=== PATIENT | female | born 1955 | race Caucasian/White ===

== ENCOUNTER 2021-04-28 22:07 | Inpatient (IN) ==
[2021-04-28] MEDS ORDERED: Magnesium Sulfate 2 gm BAG 2 GM/50 ML BAG IVPB ONE (22:42)
[2021-04-28] MEDS ORDERED: Albuterol HFA INHALER 8 gm MDI INH ONE (22:42)
[2021-04-28] MEDS ORDERED: methylPREDNISolone 125 mg 2 ML VIAL IV ONE (22:43)
[2021-04-29 00:18] LABS: Venous Bicarbonate HCO3 26.1 mmol/L (24-28)
[2021-04-29 00:20] LABS: Hematocrit 27 % (35-47); Hemoglobin 8.8 g/dL (12.0-16.0); Mean Corpuscular HGB Conc 33 g/dL (31-36); Mean Corpuscular Hemoglobin 23 pg (27-31); Mean Corpuscular Volume 69 fL (80-97); Mean Platelet Volume 7.2 fL (7.4-10.4); Platelet Count 451 10^3/uL (150-450); Red Blood Count 3.87 10^6 /uL (3.70-4.87); Red Cell Distribution Width 17 % (10-15); White Blood Count 6.5 10^3/uL (3.5-10.8)
[2021-04-29 00:37] LABS: ALT 8 U/L (7-52); AST 15 U/L (13-39); Albumin 3.8 g/dL (3.2-5.2); Albumin/Globulin Ratio 1.2 (1-3); Alkaline Phosphatase 86 U/L (35-149); Blood Urea Nitrogen 7 mg/dL (6-24); C Reactive Protein 15.22 mg/L (<8.01); CO2 Carbon Dioxide 25 mmol/L (22-32); Calcium 8.9 mg/dL (8.6-10.3); Chloride 82 mmol/L (101-111); Globulin 3.2 g/dL (2-4); Glucose 96 mg/dL (70-100); Potassium 3.6 mmol/L (3.5-5.0); eGFR CKD-EPI 101.7 (>60)
[2021-04-29 00:47] LABS: Anion Gap 9 mmol/L (2-11); Sodium 116 mmol/L (135-145)
[2021-04-29 00:54] LABS: ABS Basophils 0.1 10^3/ul (0-0.2); ABS Eosinophils 0.2 10^3/ul (0-0.6); ABS Lymphocytes 1.2 10^3/ul (1.0-4.8); ABS Monocytes 0.5 10^3/ul (0-0.8); ABS Neutrophils 4.5 10^3/ul (1.5-7.7); Eosinophil % 2.8 %; Lymphocyte % 18.3 %
[2021-04-29 01:59] LABS: Total Iron Binding Capacity 462 mcg/dL (250-450); Transferrin 330 mg/dL (203-362)
[2021-04-29 01:59] LABS: Urine Appearance Cloudy; Urine Bilirubin Negative (Negative); Urine Blood 1+ (Negative); Urine Color Yellow; Urine Glucose Negative (Negative); Urine Ketones Negative (Negative); Urine Nitrite Positive (Negative); Urine Protein Negative (Negative); Urine Specific Gravity 1.004 (1.002-1.030); Urine Urobilinogen Negative (Negative)
[2021-04-29 02:00] LABS: Urine Sodium Concentration < 18 mmol/L
[2021-04-29 02:03] LABS: Urine Amorphous Crystals Present (Absent); Urine Bacteria 2+ (Absent); Urine Red Blood Cell 3+(>10/hpf) (Absent); Urine Squamous Epithelial Cell Present (Absent); Urine White Blood Cell 3+(>20/hpf) (Absent)
[2021-04-29 02:08] LABS: Urine Creatinine Concentration 28.91 mg/dL
[2021-04-29 02:14] LABS: TSH Ultra Thyroid Stim Horm 1.64 mcIU/mL (0.34-5.60)
[2021-04-29 02:14] LABS: Urine Osmo 130 mOsm/kg (150-1150)
[2021-04-29 02:15] LABS: % Iron Saturation 4 % (15-55); Iron < 20 ug/dL (50-212); Unsaturated Iron Binding 442 ug/dL
[2021-04-29 02:18] LABS: Free T4 1.15 ng/dL (0.61-1.12)
[2021-04-29 02:21] LABS: Ferritin 5.6 ng/mL (11-307)
[2021-04-29] MEDS ORDERED: NS 0.9% 1000 ml BAG 1,000 ML IV ONE (02:26)
[2021-04-29 02:53] LABS: Osmolality Serum 247 mOsm/kg (275-295)
[2021-04-29 05:50] LABS: Urine Osmo < 100 mOsm/kg (150-1150)
[2021-04-29 06:04] LABS: Venous Bicarbonate HCO3 25.3 mmol/L (24-28)
[2021-04-29 06:14] LABS: Hematocrit 28 % (35-47)
[2021-04-29] MEDS ORDERED: Ondansetron 4 mg VIAL 2 MG/ML 2 ml VIAL IV PRN (06:22)
[2021-04-29 06:28] LABS: Potassium 3.9 mmol/L (3.5-5.0); eGFR CKD-EPI 103.5 (>60)
[2021-04-29] MEDS ORDERED: NS 0.9% 1000 ml BAG 1,000 ML IV SCH ×2 (07:00→07:02)
[2021-04-29] MEDS: cefTRIAXone 1 gm/50 mL NS BAG 1 GM/50 ML BAG IVPB SCH (08:19)
[2021-04-29 08:26] LABS: Calcium 8.8 mg/dL (8.6-10.3); eGFR CKD-EPI 103.5 (>60)
[2021-04-29] MEDS: Mometasone/Formoter 200/5 MDI INH SCH ×2 (11:27→19:21)
[2021-04-29] MEDS: Albuterol HFA INHALER 8 gm MDI INH PRN ×2 (11:29→19:24)
[2021-04-29 13:14] LABS: Potassium 3.7 mmol/L (3.5-5.0); eGFR CKD-EPI 103.5 (>60)
[2021-04-29] MEDS: Heparin 5000 UNITS/ML 1 mL VIAL SUBCUT SCH ×2 (14:40→20:55)
[2021-04-29] MEDS ORDERED: Senna TAB 8.6 mg TAB PO PRN (15:46)
[2021-04-29 16:59] LABS: Calcium 8.9 mg/dL (8.6-10.3); Potassium 3.9 mmol/L (3.5-5.0); eGFR CKD-EPI 96.6 (>60)
[2021-04-29] MEDS: Polyethylene Glycol 3350 17 GM PACKET PO SCH (17:04)
[2021-04-29 20:48] LABS: Calcium 8.5 mg/dL (8.6-10.3); Potassium 3.7 mmol/L (3.5-5.0); eGFR CKD-EPI 97.6 (>60)
[2021-04-29] MEDS: NS 0.9% 1000 ml BAG 1,000 ML IV SCH (20:51)
[2021-04-30 00:40] LABS: Calcium 8.3 mg/dL (8.6-10.3); Potassium 3.6 mmol/L (3.5-5.0)
[2021-04-30 04:26] LABS: ABS Basophils 0.1 10^3/ul (0-0.2); ABS Lymphocytes 0.4 10^3/ul (1.0-4.8); ABS Monocytes 0.7 10^3/ul (0-0.8); ABS Neutrophils 7.7 10^3/ul (1.5-7.7); Eosinophil % 0.3 %; Hematocrit 24 % (35-47); Hemoglobin 7.6 g/dL (12.0-16.0); Lymphocyte % 4.3 %; Mean Corpuscular HGB Conc 32 g/dL (31-36); Mean Corpuscular Hemoglobin 23 pg (27-31); Mean Corpuscular Volume 70 fL (80-97); Mean Platelet Volume 7.2 fL (7.4-10.4); Platelet Count 422 10^3/uL (150-450); Red Blood Count 3.37 10^6 /uL (3.70-4.87); Red Cell Distribution Width 17 % (10-15); White Blood Count 8.9 10^3/uL (3.5-10.8)
[2021-04-30 04:40] LABS: Calcium 8.4 mg/dL (8.6-10.3); Potassium 3.7 mmol/L (3.5-5.0); eGFR CKD-EPI 102.6 (>60)
[2021-04-30] MEDS: NS 0.9% 1000 ml BAG 1,000 ML IV SCH (05:02)
[2021-04-30] MEDS: Heparin 5000 UNITS/ML 1 mL VIAL SUBCUT SCH ×3 (05:04→21:19)
[2021-04-30] MEDS: Albuterol HFA INHALER 8 gm MDI INH PRN ×2 (07:15→18:51)
[2021-04-30] MEDS: Mometasone/Formoter 200/5 MDI INH SCH ×2 (07:17→18:51)
[2021-04-30 08:22] LABS: Calcium 8.6 mg/dL (8.6-10.3); Potassium 3.6 mmol/L (3.5-5.0)
[2021-04-30] MEDS: Polyethylene Glycol 3350 17 GM PACKET PO SCH (08:56)
[2021-04-30] MEDS: cefTRIAXone 1 gm/50 mL NS BAG 1 GM/50 ML BAG IVPB SCH (08:56)
[2021-04-30 12:45] LABS: Calcium 8.7 mg/dL (8.6-10.3); Potassium 3.6 mmol/L (3.5-5.0); eGFR CKD-EPI 104.5 (>60)
[2021-04-30] MEDS: Iron Sucrose 200 MG in NS 0.9% 100 ml BAG 100 ML IVPB SCH (18:41)
[2021-04-30] MEDS: Albuterol 2.5mg/3 ml (0.083%) NEB.SOLN INH PRN (20:07)
[2021-05-01 06:00] LABS: ABS Lymphocytes 1.1 10^3/ul (1.0-4.8); ABS Monocytes 0.8 10^3/ul (0-0.8); ABS Neutrophils 6.5 10^3/ul (1.5-7.7); Eosinophil % 0.2 %; Hematocrit 25 % (35-47); Hemoglobin 7.9 g/dL (12.0-16.0); Lymphocyte % 13.1 %; Mean Corpuscular HGB Conc 32 g/dL (31-36); Mean Corpuscular Hemoglobin 22 pg (27-31); Mean Corpuscular Volume 69 fL (80-97); Mean Platelet Volume 7.1 fL (7.4-10.4); Platelet Count 510 10^3/uL (150-450); Red Blood Count 3.63 10^6 /uL (3.70-4.87); Red Cell Distribution Width 18 % (10-15); White Blood Count 8.5 10^3/uL (3.5-10.8)
[2021-05-01 06:12] LABS: Calcium 8.7 mg/dL (8.6-10.3); Potassium 3.1 mmol/L (3.5-5.0); eGFR CKD-EPI 104.5 (>60)
[2021-05-01] MEDS: Heparin 5000 UNITS/ML 1 mL VIAL SUBCUT SCH ×2 (06:23→17:29)
[2021-05-01 06:54] LABS: Magnesium 1.1 mg/dL (1.9-2.7)
[2021-05-01] MEDS: Mometasone/Formoter 200/5 MDI INH SCH ×2 (07:35→19:23)
[2021-05-01] MEDS: Albuterol HFA INHALER 8 gm MDI INH PRN ×2 (07:43→19:22)
[2021-05-01] MEDS: cefTRIAXone 1 gm/50 mL NS BAG 1 GM/50 ML BAG IVPB SCH (08:06)
[2021-05-01] MEDS: Potassium Chlor 20 meq TAB.ER PO SCH ×3 (08:11→17:29)
[2021-05-01] MEDS: Polyethylene Glycol 3350 17 GM PACKET PO SCH (08:23)
[2021-05-01] MEDS ORDERED: Magnesium Sulf 4 GM/100 ML IV 4,000 MG/100 ML BAG IVPB ONE (08:30)
[2021-05-01] MEDS: Iron Sucrose 200 MG in NS 0.9% 100 ml BAG 100 ML IVPB SCH (08:51)
[2021-05-01 15:23] LABS: Magnesium 2.4 mg/dL (1.9-2.7); eGFR CKD-EPI 97.6 (>60)
[2021-05-01] MEDS: Heparin DRIP 25,000 UNITS BAG 25,000 UNITS/500 ML BAG IV SCH (18:31)
[2021-05-02] MEDS: Albuterol 2.5mg/3 ml (0.083%) NEB.SOLN INH PRN (00:08)
[2021-05-02] MEDS: Heparin 5000 UNITS/ML 1 mL VIAL IV SCH (02:41)
[2021-05-02] MEDS: Mometasone/Formoter 200/5 MDI INH SCH ×2 (07:18→20:06)
[2021-05-02 08:42] LABS: ABS Lymphocytes 1.8 10^3/ul (1.0-4.8); ABS Monocytes 0.9 10^3/ul (0-0.8); ABS Neutrophils 5.9 10^3/ul (1.5-7.7); Eosinophil % 0.4 %; Hematocrit 26 % (35-47); Hemoglobin 8.3 g/dL (12.0-16.0); Lymphocyte % 20.6 %; Mean Corpuscular HGB Conc 32 g/dL (31-36); Mean Corpuscular Hemoglobin 22 pg (27-31); Mean Corpuscular Volume 69 fL (80-97); Mean Platelet Volume 6.9 fL (7.4-10.4); Platelet Count 536 10^3/uL (150-450); Red Blood Count 3.82 10^6 /uL (3.70-4.87); Red Cell Distribution Width 18 % (10-15); White Blood Count 8.6 10^3/uL (3.5-10.8)
[2021-05-02 08:55] LABS: Calcium 9.2 mg/dL (8.6-10.3); Magnesium 1.5 mg/dL (1.9-2.7); Potassium 3.3 mmol/L (3.5-5.0); eGFR CKD-EPI 106.1 (>60)
[2021-05-02] MEDS: Polyethylene Glycol 3350 17 GM PACKET PO SCH (09:03)
[2021-05-02] MEDS: Amoxicillin/Clavul 500/125 TAB (Augmentin 500 mg tab) PO SCH ×2 (09:20→20:17)
[2021-05-02] MEDS ORDERED: Magnesium Sulfate IV 1GM/100ML 1 GM/100 ML BAG IV ONE (11:14)
[2021-05-02] MEDS: Potassium Chlor 20 meq TAB.ER PO SCH ×3 (13:29→20:19)
[2021-05-02] MEDS: Iron Sucrose 200 MG in NS 0.9% 100 ml BAG 100 ML IVPB SCH (14:56)
[2021-05-02] MEDS: Albuterol HFA INHALER 8 gm MDI INH PRN ×2 (15:12→20:07)
[2021-05-02] MEDS: Heparin DRIP 25,000 UNITS BAG 25,000 UNITS/500 ML BAG IV SCH (18:26)
[2021-05-03] MEDS: Albuterol HFA INHALER 8 gm MDI INH PRN (00:38)
[2021-05-03 05:21] LABS: ABS Lymphocytes 1.5 10^3/ul (1.0-4.8); ABS Monocytes 0.9 10^3/ul (0-0.8); ABS Neutrophils 7.8 10^3/ul (1.5-7.7); Eosinophil % 0.1 %; Hematocrit 24 % (35-47); Hemoglobin 7.8 g/dL (12.0-16.0); Lymphocyte % 14.3 %; Mean Corpuscular HGB Conc 32 g/dL (31-36); Mean Corpuscular Hemoglobin 22 pg (27-31); Mean Corpuscular Volume 69 fL (80-97); Mean Platelet Volume 6.9 fL (7.4-10.4); Platelet Count 522 10^3/uL (150-450); Red Blood Count 3.53 10^6 /uL (3.70-4.87); Red Cell Distribution Width 18 % (10-15); White Blood Count 10.2 10^3/uL (3.5-10.8)
[2021-05-03 05:29] LABS: Magnesium 1.7 mg/dL (1.9-2.7); Potassium 4.3 mmol/L (3.5-5.0)
[2021-05-03] MEDS: Albuterol 2.5mg/3 ml (0.083%) NEB.SOLN INH PRN ×2 (06:53→10:21)
[2021-05-03] MEDS: Mometasone/Formoter 200/5 MDI INH SCH ×2 (07:47→20:03)
[2021-05-03] MEDS: Amoxicillin/Clavul 500/125 TAB (Augmentin 500 mg tab) PO SCH ×2 (08:30→20:44)
[2021-05-03] MEDS: Polyethylene Glycol 3350 17 GM PACKET PO SCH (08:31)
[2021-05-03] MEDS: Magnesium Sulfate IV 1GM/100ML 1 GM/100 ML BAG IV ONE ×2 (08:31→08:42)
[2021-05-03] MEDS ORDERED: diPHENhydraMINE IV 50 MG/ML 1 ml VIAL (BENADRYL) SLOW PUSH PRN (09:39)
[2021-05-03] MEDS ORDERED: diPHENhydraMINE IV 50 MG/ML 1 ml VIAL (BENADRYL) ONE (09:45)
[2021-05-03] MEDS: Iron Sucrose 200 MG in NS 0.9% 100 ml BAG 100 ML IVPB SCH (09:48)
[2021-05-03] MEDS: Heparin DRIP 25,000 UNITS BAG 25,000 UNITS/500 ML BAG IV SCH (19:42)
[2021-05-03] MEDS: Heparin 5000 UNITS/ML 1 mL VIAL IV SCH (19:42)
[2021-05-04 02:17] LABS: ABS Basophils 0.1 10^3/ul (0-0.2); ABS Eosinophils 0.2 10^3/ul (0-0.6); ABS Lymphocytes 2.2 10^3/ul (1.0-4.8); ABS Monocytes 0.9 10^3/ul (0-0.8); ABS Neutrophils 7.1 10^3/ul (1.5-7.7); Eosinophil % 2.4 %; Hematocrit 26 % (35-47); Hemoglobin 8.2 g/dL (12.0-16.0); Lymphocyte % 20.6 %; Mean Corpuscular HGB Conc 32 g/dL (31-36); Mean Corpuscular Hemoglobin 22 pg (27-31); Mean Corpuscular Volume 70 fL (80-97); Mean Platelet Volume 6.8 fL (7.4-10.4); Platelet Count 494 10^3/uL (150-450); Red Blood Count 3.73 10^6 /uL (3.70-4.87); Red Cell Distribution Width 17 % (10-15); White Blood Count 10.4 10^3/uL (3.5-10.8)
[2021-05-04 02:28] LABS: Calcium 9.1 mg/dL (8.6-10.3); Magnesium 1.5 mg/dL (1.9-2.7); Potassium 4.5 mmol/L (3.5-5.0); eGFR CKD-EPI 100.4 (>60)
[2021-05-04] MEDS: Albuterol 2.5mg/3 ml (0.083%) NEB.SOLN INH PRN ×2 (03:57→11:40)
[2021-05-04] MEDS: Mometasone/Formoter 200/5 MDI INH SCH (07:41)
[2021-05-04] MEDS: Polyethylene Glycol 3350 17 GM PACKET PO SCH (09:31)
[2021-05-04 15:21] VITALS: BP 141/59
== END 2021-05-04 16:45 | disposition home or self-care (01) | DRG 641 ==
LOC: ED 22:07 → EDHOLD 04-29 06:46 → SUATTDRO 04-29 06:46 → MED 04-29 09:12
PROVIDERS: ADMIT Internal Medicine; ATTEND Internal Medicine

== ENCOUNTER 2022-10-29 20:23 | Observation (INO) ==
[2022-10-29 21:39] LABS: ABS Basophils 0.1 10^3/uL (0.0-0.1); ABS Eosinophils 0.1 10^3/uL (0.0-0.5); ABS Lymphocytes 1.3 10^3/uL (1.0-4.8); ABS Monocytes 1.1 10^3/uL (0.0-0.9); ABS Neutrophils 9.3 10^3/uL (1.5-7.6); ABS Nucleated RBC 0.01 10^3/ul; Eosinophil % 0.7 %; Hematocrit 30.4 % (35-45); Hemoglobin 10.1 g/dL (11.5-14.3); Lymphocyte % 11.1 %; Mean Corpuscular Hemoglobin 27.1 pg (27-33); Mean Corpuscular Hgb Conc 33.2 g/dL (31-36); Mean Corpuscular Volume 81.6 fL (80-97); Mean Platelet Volume 7.4 fL (7.5-11.2); Nucleated Red Blood Cells % 0.1 /100 WBC (0.0-0.4); Platelet Count 363 10^3/uL (150-450); Red Blood Count 3.72 10^6/uL (3.63-4.92); Red Cell Distribution Width 13.9 % (12-17); White Blood Count 11.9 10^3/uL (3.8-11.8)
[2022-10-29 21:50] LABS: INR 1.43 (0.83-1.13)
[2022-10-29 21:56] LABS: Albumin 3.9 g/dL (3.2-5.2); Albumin/Globulin Ratio 1.5 (1-3); Calcium 8.7 mg/dL (8.6-10.3); Creatinine, Serum 0.64 mg/dL (0.51-0.95); Globulin 2.6 g/dL (2-4); Potassium 4.2 mmol/L (3.5-5.0); Total Bilirubin 0.5 mg/dL (0.2-1.0); Total Protein 6.5 g/dL (6.4-8.9); eGFR CKD-EPI 97.4 (>60)
[2022-10-30] MEDS ORDERED: NS 0.9% 1000 ml BAG 1,000 ML IV ONE (03:05)
[2022-10-30] MEDS ORDERED: PEG 3000 GI LAVAGE 1 GALLON PO ONE ×2 (03:10→08:44)
[2022-10-30 06:15] LABS: Hematocrit 26.2 % (35-45); Hemoglobin 8.9 g/dL (11.5-14.3); Mean Corpuscular Hemoglobin 27.4 pg (27-33); Mean Corpuscular Hgb Conc 33.9 g/dL (31-36); Mean Corpuscular Volume 80.6 fL (80-97); Mean Platelet Volume 7.3 fL (7.5-11.2); Platelet Count 319 10^3/uL (150-450); Red Blood Count 3.25 10^6/uL (3.63-4.92); Red Cell Distribution Width 13.8 % (12-17); White Blood Count 9.9 10^3/uL (3.8-11.8)
[2022-10-30 06:33] LABS: Calcium 8.8 mg/dL (8.6-10.3); Creatinine, Serum 0.68 mg/dL (0.51-0.95); Potassium 4.2 mmol/L (3.5-5.0)
[2022-10-30 07:04] LABS: Osmolality Serum 261 mOsm/kg (275-295)
[2022-10-30 07:06] LABS: Urine Osmo 363 mOsm/kg (150-1150)
[2022-10-30] MEDS: Mometasone/Formoter 200/5 MDI INH SCH ×2 (08:03→17:56)
[2022-10-30] MEDS: Albuterol HFA INHALER 8 gm MDI INH SCH ×4 (08:03→22:23)
[2022-10-30 08:10] LABS: Magnesium 1.5 mg/dL (1.9-2.7)
[2022-10-30 08:34] LABS: Erythrocyte Sed Rate 20 mm/Hr (0-29)
[2022-10-30] MEDS ORDERED: Midazolam 2 mg/2 ml VIAL 1 mg/ml 2 ml VIAL (2 mg) ONE (11:20)
[2022-10-30] MEDS ORDERED: Ondansetron 4 mg VIAL 2 MG/ML 2 ml VIAL ONE (11:20)
[2022-10-30] MEDS ORDERED: fentaNYL 100 mcg/2 ml 50 MCG/ML VIAL ONE (11:20)
[2022-10-30] MEDS ORDERED: Albuterol (2.5 MG) 0.5 % CONC 0.5 ML NEB.SOLN INH ONE (14:13)
[2022-10-30] MEDS ORDERED: Albuterol 2.5mg/3 ml (0.083%) NEB.SOLN INH ONE (14:15)
[2022-10-30 19:48] LABS: Ferritin 7.6 ng/mL (11-307)
[2022-10-30] MEDS ORDERED: Al Hydrox/Mg Hydrox/Simet LIQ 30 ML UDC PO PRN (20:22)
[2022-10-30] MEDS ORDERED: Al Hydrox/Mg Hydrox/Simet LIQ 30 ML UDC ONE (20:40)
[2022-10-30] MEDS ORDERED: HYDROmorphone 1 MG/1 ML SYRINGE IV SLOW PU ONE (22:15)
[2022-10-31 05:44] LABS: ABS Basophils 0.1 10^3/uL (0.0-0.1); ABS Eosinophils 0.1 10^3/uL (0.0-0.5); ABS Lymphocytes 1.4 10^3/uL (1.0-4.8); ABS Monocytes 0.7 10^3/uL (0.0-0.9); ABS Neutrophils 5.6 10^3/uL (1.5-7.6); ABS Nucleated RBC 0.01 10^3/ul; Eosinophil % 1.8 %; Hematocrit 24.4 % (35-45); Hemoglobin 8.2 g/dL (11.5-14.3); Lymphocyte % 18.1 %; Mean Corpuscular Hemoglobin 27.5 pg (27-33); Mean Corpuscular Hgb Conc 33.7 g/dL (31-36); Mean Corpuscular Volume 81.7 fL (80-97); Mean Platelet Volume 7.5 fL (7.5-11.2); Nucleated Red Blood Cells % 0.1 /100 WBC (0.0-0.4); Platelet Count 256 10^3/uL (150-450); Red Blood Count 2.99 10^6/uL (3.63-4.92); Red Cell Distribution Width 14.1 % (12-17); White Blood Count 7.9 10^3/uL (3.8-11.8)
[2022-10-31 06:08] LABS: Calcium 8.3 mg/dL (8.6-10.3); Creatinine, Serum 0.57 mg/dL (0.51-0.95); Potassium 3.6 mmol/L (3.5-5.0); eGFR CKD-EPI 100.2 (>60)
[2022-10-31] MEDS: Albuterol HFA INHALER 8 gm MDI INH SCH ×2 (07:48→13:04)
[2022-10-31] MEDS: Mometasone/Formoter 200/5 MDI INH SCH (07:48)
[2022-10-31] MEDS ORDERED: Iron Sucrose 200 MG in NS 0.9% 100 ml BAG 100 ML IVPB ONE (09:00)
[2022-10-31] MEDS ORDERED: Magnesium Sulfate IV 3 GM in NS 0.9% 100 ml BAG 100 ML IVPB ONE (10:30)
[2022-10-31 12:51] VITALS: BP 130/45
== END 2022-10-31 14:00 | disposition home or self-care (01) ==
LOC: ED 20:23 → INTOOBSV 10-30 00:09 → SUATTDRO 10-30 00:09 → EDHOLD 10-30 00:09 → MEDTELE 10-30 03:06
PROVIDERS: ADMIT Hospitalist; ATTEND Internal Medicine

== ENCOUNTER 2022-12-17 17:32 | Inpatient (IN) ==
[2022-12-17] MEDS ORDERED: Albuterol 2.5mg/3 ml (0.083%) NEB.SOLN INH ONE (19:44)
[2022-12-17 19:59] LABS: ABS Basophils 0.2 10^3/uL (0.0-0.1); ABS Lymphocytes 0.8 10^3/uL (1.0-4.8); ABS Monocytes 0.8 10^3/uL (0.0-0.9); ABS Neutrophils 6.7 10^3/uL (1.5-7.6); ABS Nucleated RBC 0.01 10^3/ul; Eosinophil % 0.5 %; Hemoglobin 6.7 g/dL (11.5-14.3); Lymphocyte % 8.9 %; Mean Corpuscular Hgb Conc 33.3 g/dL (31-36); Mean Corpuscular Volume 75.1 fL (80-97); Mean Platelet Volume 7.2 fL (7.5-11.2); Nucleated Red Blood Cells % 0.1 /100 WBC (0.0-0.4); Platelet Count 425 10^3/uL (150-450); Red Blood Count 2.67 10^6/uL (3.63-4.92); Red Cell Distribution Width 19.6 % (12-17); White Blood Count 8.5 10^3/uL (3.8-11.8)
[2022-12-17 20:08] LABS: INR 1.17 (0.83-1.13)
[2022-12-17 20:11] LABS: Albumin 3.6 g/dL (3.2-5.2); Calcium 8.3 mg/dL (8.6-10.3); Magnesium 1.3 mg/dL (1.9-2.7); Potassium 4.2 mmol/L (3.5-5.0); Total Bilirubin 0.4 mg/dL (0.2-1.0)
[2022-12-17 20:17] LABS: Albumin/Globulin Ratio 1.5 (1-3); Creatinine, Serum 0.59 mg/dL (0.51-0.95); Globulin 2.4 g/dL (2-4); eGFR CKD-EPI 98.7 (>60)
[2022-12-17] MEDS ORDERED: Tetan/Diph/Pertus SYR(Tdap) 0.5 ML SYR(BOOSTRIX) use SYR contains LATEX IM ONE (22:06)
[2022-12-17] MEDS ORDERED: Neosporin TOPICAL OINT PACKET TOPICAL ONE (22:06)
[2022-12-17] MEDS ORDERED: PEG 3000 GI LAVAGE 1 GALLON PO ONE (22:30)
[2022-12-18] MEDS: Albuterol HFA INHALER 8 gm MDI INH PRN ×2 (03:34→19:27)
[2022-12-18 03:52] LABS: Hematocrit 22.3 % (35-45); Hemoglobin 7.6 g/dL (11.5-14.3)
[2022-12-18 04:15] LABS: Osmolality Serum 256 mOsm/kg (275-295)
[2022-12-18 04:38] LABS: Ferritin 6.2 ng/mL (11-307)
[2022-12-18 05:58] LABS: ABS Basophils 0.1 10^3/uL (0.0-0.1); ABS Eosinophils 0.1 10^3/uL (0.0-0.5); ABS Lymphocytes 0.9 10^3/uL (1.0-4.8); ABS Monocytes 0.8 10^3/uL (0.0-0.9); ABS Neutrophils 6.4 10^3/uL (1.5-7.6); Eosinophil % 1.5 %; Hemoglobin 7.5 g/dL (11.5-14.3); Lymphocyte % 10.9 %; Mean Corpuscular Hemoglobin 27.2 pg (27-33); Mean Corpuscular Hgb Conc 34.2 g/dL (31-36); Mean Corpuscular Volume 79.4 fL (80-97); Mean Platelet Volume 7.4 fL (7.5-11.2); Platelet Count 268 10^3/uL (150-450); Red Blood Count 2.77 10^6/uL (3.63-4.92); Red Cell Distribution Width 19.9 % (12-17); White Blood Count 8.3 10^3/uL (3.8-11.8)
[2022-12-18 06:13] LABS: Calcium 7.8 mg/dL (8.6-10.3); Creatinine, Serum 0.45 mg/dL (0.51-0.95); Potassium 3.4 mmol/L (3.5-5.0); eGFR CKD-EPI 105.4 (>60)
[2022-12-18] MEDS ORDERED: Magnesium Sulfate IV 3 GM in NS 0.9% 100 ml BAG 100 ML IVPB ONE (06:25)
[2022-12-18] MEDS: Mometasone/Formoter 200/5 MDI INH SCH ×2 (07:13→19:27)
[2022-12-18 07:14] LABS: Magnesium 1.2 mg/dL (1.9-2.7)
[2022-12-18] MEDS ORDERED: Potassium Chlor 20 meq TAB.ER PO ONE (07:19)
[2022-12-18] MEDS: Pantoprazole VIAL 40 MG VIAL IV SCH (07:57)
[2022-12-18] MEDS ORDERED: Influenza vaccine *QUAD* *2023-24* 0.5 ML SYRINGE IM ONE (09:00)
[2022-12-18] MEDS ORDERED: NS 0.9% 1000 ml BAG 1,000 ML IV SCH (09:00)
[2022-12-18] MEDS ORDERED: PEG 3000 GI LAVAGE 1 GALLON PO ONE (09:30)
[2022-12-18 12:57] LABS: ABS Eosinophils 0.1 10^3/uL (0.0-0.5); ABS Lymphocytes 0.6 10^3/uL (1.0-4.8); ABS Monocytes 0.6 10^3/uL (0.0-0.9); ABS Neutrophils 4.3 10^3/uL (1.5-7.6); ABS Nucleated RBC 0.01 10^3/ul; Hematocrit 21.7 % (35-45); Hemoglobin 7.3 g/dL (11.5-14.3); Lymphocyte % 11.2 %; Mean Corpuscular Hemoglobin 26.7 pg (27-33); Mean Corpuscular Hgb Conc 33.9 g/dL (31-36); Mean Corpuscular Volume 78.8 fL (80-97); Mean Platelet Volume 7.2 fL (7.5-11.2); Nucleated Red Blood Cells % 0.2 %/100WBC (0.0-0.8); Platelet Count 289 10^3/uL (150-450); Red Blood Count 2.75 10^6/uL (3.63-4.92); Red Cell Distribution Width 19.6 % (12-17); White Blood Count 5.7 10^3/uL (3.8-11.8)
[2022-12-18] MEDS ORDERED: Propofol 10 MG/ML 20 ML BTL ONE (14:23)
[2022-12-18] MEDS ORDERED: [UNRECOGNIZED DRUG - REMARK] INTRANASAL PRN (20:19)
[2022-12-19] MEDS ORDERED: Saline NASAL SPRAY 0.65% BTL BOTH NARES PRN (02:03)
[2022-12-19] MEDS: Albuterol HFA INHALER 8 gm MDI INH PRN ×3 (05:43→19:11)
[2022-12-19] MEDS: Mometasone/Formoter 200/5 MDI INH SCH ×2 (06:49→19:11)
[2022-12-19 06:56] LABS: Hematocrit 21.2 % (35-45); Hemoglobin 7.2 g/dL (11.5-14.3); Mean Corpuscular Hemoglobin 26.7 pg (27-33); Mean Corpuscular Hgb Conc 33.9 g/dL (31-36); Mean Corpuscular Volume 78.8 fL (80-97); Mean Platelet Volume 7.3 fL (7.5-11.2); Platelet Count 292 10^3/uL (150-450); Red Cell Distribution Width 19.6 % (12-17); White Blood Count 6.3 10^3/uL (3.8-11.8)
[2022-12-19 07:20] LABS: Calcium 8.2 mg/dL (8.6-10.3); Creatinine, Serum 0.43 mg/dL (0.51-0.95); Magnesium 1.6 mg/dL (1.9-2.7); Potassium 3.3 mmol/L (3.5-5.0); eGFR CKD-EPI 106.5 (>60)
[2022-12-19] MEDS ORDERED: Potassium Chlor 20 meq TAB.ER PO ONE ×2 (07:33→12:00)
[2022-12-19] MEDS ORDERED: Magnesium Sulfate IV 3 GM in NS 0.9% 100 ml BAG 100 ML IVPB ONE (08:30)
[2022-12-19] MEDS: Pantoprazole VIAL 40 MG VIAL IV SCH (08:57)
[2022-12-19] MEDS ORDERED: NS 0.9% 1000 ml BAG 1,000 ML IV SCH (10:30)
[2022-12-19 11:42] LABS: Phosphorus 3.5 mg/dL (2.5-5.0)
[2022-12-19] MEDS ORDERED: Potassium Chlor 20 meq TAB.ER PO SCH (13:00)
[2022-12-19] MEDS: Neomycin/Polym/Bacit TOP OINT 15 GM TOPICAL SCH (13:13)
[2022-12-20] MEDS: Neomycin/Polym/Bacit TOP OINT 15 GM TOPICAL SCH (00:35)
[2022-12-20] MEDS: Albuterol HFA INHALER 8 gm MDI INH PRN (05:08)
[2022-12-20] MEDS: Mometasone/Formoter 200/5 MDI INH SCH ×2 (07:56→17:24)
[2022-12-20 09:02] LABS: Hematocrit 24.7 % (35-45); Hemoglobin 8.3 g/dL (11.5-14.3); Mean Corpuscular Hemoglobin 27.2 pg (27-33); Mean Corpuscular Hgb Conc 33.7 g/dL (31-36); Mean Corpuscular Volume 80.5 fL (80-97); Mean Platelet Volume 7.2 fL (7.5-11.2); Platelet Count 335 10^3/uL (150-450); Red Blood Count 3.07 10^6/uL (3.63-4.92); Red Cell Distribution Width 20.4 % (12-17); White Blood Count 7.3 10^3/uL (3.8-11.8)
[2022-12-20 09:29] LABS: Calcium 8.7 mg/dL (8.6-10.3); Creatinine, Serum 0.48 mg/dL (0.51-0.95); Magnesium 1.5 mg/dL (1.9-2.7); Phosphorus 3.6 mg/dL (2.5-5.0); Potassium 4.2 mmol/L (3.5-5.0); eGFR CKD-EPI 103.8 (>60)
[2022-12-20] MEDS: Pantoprazole VIAL 40 MG VIAL IV SCH (09:46)
[2022-12-20 13:55] VITALS: BP 118/46
== END 2022-12-20 16:20 | disposition home or self-care (01) | DRG 920 ==
LOC: ED 17:32 → MEDTELE 23:35 → INTOOBSV 23:35 → EDHOLD 23:35 → SUATTDRO 23:35 → MEDTELE 12-18 02:46
PROVIDERS: ADMIT Student in an Organized Health Care Education/Training Program; ATTEND Internal Medicine

== ENCOUNTER 2023-01-19 15:04 | Inpatient (IN) ==
[2023-01-19] MEDS ORDERED: methylPREDNISolone SOD SUCC 125 mg 2 ML VIAL IV ONE (16:03)
[2023-01-19] MEDS ORDERED: Albuterol 2.5mg/3 ml (0.083%) NEB.SOLN INH ONE ×2 (16:05→18:37)
[2023-01-19 17:28] LABS: ABS Basophils 0.1 10^3/uL (0.0-0.1); ABS Eosinophils 0.1 10^3/uL (0.0-0.5); ABS Lymphocytes 0.5 10^3/uL (1.0-4.8); ABS Monocytes 0.8 10^3/uL (0.0-0.9); ABS Neutrophils 7.4 10^3/uL (1.5-7.6); ABS Nucleated RBC 0.01 10^3/ul; Eosinophil % 0.8 %; Hemoglobin 8.2 g/dL (11.5-14.3); Lymphocyte % 5.6 %; Mean Corpuscular Hemoglobin 21.5 pg (27-33); Mean Corpuscular Hgb Conc 31.4 g/dL (31-36); Mean Corpuscular Volume 68.5 fL (80-97); Mean Platelet Volume 7.2 fL (7.5-11.2); Nucleated Red Blood Cells % 0.2 %/100WBC (0.0-0.8); Platelet Count 409 10^3/uL (150-450); Red Blood Count 3.79 10^6/uL (3.63-4.92); White Blood Count 8.8 10^3/uL (3.8-11.8)
[2023-01-19 17:37] LABS: ALT 10 U/L (7-52); Albumin 3.9 g/dL (3.2-5.2); Albumin/Globulin Ratio 1.3 (1-3); Alkaline Phosphatase 86 U/L (35-149); Anion Gap 8 mmol/L (2-16); Blood Urea Nitrogen 5 mg/dL (6-24); CO2 Carbon Dioxide 31 mmol/L (22-32); Calcium 8.6 mg/dL (8.6-10.3); Chloride 80 mmol/L (101-111); Creatinine, Serum 0.46 mg/dL (0.51-0.95); Globulin 2.9 g/dL (2-4); Glucose 111 mg/dL (70-100); Sodium 119 mmol/L (135-145); Total Bilirubin 0.5 mg/dL (0.2-1.0); Total Protein 6.8 g/dL (6.4-8.9); eGFR CKD-EPI 104.8 (>60)
[2023-01-19] MEDS ORDERED: Iodixanol (CONTRAST) 320 MG/ML 100 ML SDV IV ONE (18:06)
[2023-01-19 20:43] LABS: Potassium Redraw 4.1 mmol/L (3.5-5.0)
[2023-01-19] MEDS ORDERED: Nicotine Lozenge mini 2 MG LOZNG.MINI MT PRN (21:49)
[2023-01-19] MEDS ORDERED: Nicotine GUM 2MG FRUIT FLAVOR PO PRN (21:49)
[2023-01-19] MEDS ORDERED: Senna TAB 8.6 mg TAB PO PRN (22:46)
[2023-01-19] MEDS ORDERED: Polyethylene Glycol 3350 17 GM PACKET PO PRN (22:46)
[2023-01-19] MEDS: Enoxaparin 80 MG/0.8 ML SYR SUBCUT SCH (22:53)
[2023-01-20] MEDS: Albuterol 2.5mg/3 ml (0.083%) NEB.SOLN INH PRN (01:27)
[2023-01-20 06:05] LABS: ABS Lymphocytes 0.1 10^3/uL (1.0-4.8); ABS Neutrophils 2.9 10^3/uL (1.5-7.6); Hemoglobin 7.3 g/dL (11.5-14.3); Lymphocyte % 3.5 %; Mean Corpuscular Hemoglobin 21.4 pg (27-33); Mean Corpuscular Hgb Conc 31.8 g/dL (31-36); Mean Corpuscular Volume 67.5 fL (80-97); Mean Platelet Volume 7.2 fL (7.5-11.2); Nucleated Red Blood Cells % 0.1 %/100WBC (0.0-0.8); Platelet Count 312 10^3/uL (150-450); Red Blood Count 3.41 10^6/uL (3.63-4.92); Red Cell Distribution Width 23.3 % (12-17); White Blood Count 3.1 10^3/uL (3.8-11.8)
[2023-01-20 06:37] LABS: Calcium 8.5 mg/dL (8.6-10.3); Creatinine, Serum 0.6 mg/dL (0.51-0.95); Magnesium 1.3 mg/dL (1.9-2.7); Potassium 4.6 mmol/L (3.5-5.0); eGFR CKD-EPI 98.3 (>60)
[2023-01-20] MEDS: Albuterol HFA INHALER 8 gm MDI INH SCH ×4 (07:32→20:24)
[2023-01-20] MEDS: Mometasone/Formoter 200/5 MDI INH SCH ×2 (07:32→20:15)
[2023-01-20] MEDS ORDERED: Magnesium Sulfate IV 1GM/100ML 1 GM/100 ML BAG IV ONE (08:59)
[2023-01-20] MEDS ORDERED: Magnesium Sulfate 2 gm BAG 2 GM/50 ML BAG IVPB ONE (09:02)
[2023-01-20 09:14] LABS: Osmolality Serum 254 mOsm/kg (275-295)
[2023-01-20] MEDS: Enoxaparin 80 MG/0.8 ML SYR SUBCUT SCH ×2 (10:42→22:17)
[2023-01-20 13:11] LABS: Urine Osmo 147 mOsm/kg (150-1150)
[2023-01-21] MEDS: Albuterol 2.5mg/3 ml (0.083%) NEB.SOLN INH PRN ×2 (02:05→09:28)
[2023-01-21 07:11] LABS: ABS Basophils 0.1 10^3/uL (0.0-0.1); ABS Lymphocytes 1.5 10^3/uL (1.0-4.8); ABS Monocytes 0.9 10^3/uL (0.0-0.9); ABS Neutrophils 7.8 10^3/uL (1.5-7.6); ABS Nucleated RBC 0.02 10^3/ul; Eosinophil % 0.2 %; Hematocrit 22.3 % (35-45); Hemoglobin 6.9 g/dL (11.5-14.3); Lymphocyte % 14.4 %; Mean Corpuscular Hemoglobin 21.2 pg (27-33); Mean Corpuscular Hgb Conc 30.8 g/dL (31-36); Mean Corpuscular Volume 68.6 fL (80-97); Nucleated Red Blood Cells % 0.2 %/100WBC (0.0-0.8); Platelet Count 360 10^3/uL (150-450); Red Blood Count 3.26 10^6/uL (3.63-4.92); Red Cell Distribution Width 23.6 % (12-17); White Blood Count 10.2 10^3/uL (3.8-11.8)
[2023-01-21 07:14] LABS: Anion Gap 6 mmol/L (2-16); Blood Urea Nitrogen 15 mg/dL (6-24); CO2 Carbon Dioxide 31 mmol/L (22-32); Calcium 8.6 mg/dL (8.6-10.3); Chloride 88 mmol/L (101-111); Creatinine, Serum 0.53 mg/dL (0.51-0.95); Glucose 101 mg/dL (70-100); Potassium 4.2 mmol/L (3.5-5.0); Sodium 125 mmol/L (135-145); eGFR CKD-EPI 101.3 (>60)
[2023-01-21] MEDS: Mometasone/Formoter 200/5 MDI INH SCH ×2 (07:16→19:25)
[2023-01-21] MEDS: Albuterol HFA INHALER 8 gm MDI INH SCH (07:16)
[2023-01-21] MEDS ORDERED: Albuterol HFA INHALER 8 gm MDI INH PRN (07:24)
[2023-01-21 08:50] LABS: Ferritin 3.8 ng/mL (11-307)
[2023-01-21 08:54] LABS: Folate 12.64 ng/mL (5.90-24.80)
[2023-01-21 08:55] LABS: Vitamin B12 427 pg/mL (180-914)
[2023-01-21 09:16] LABS: Iron < 20 ug/dL (50-212)
[2023-01-21] MEDS: Enoxaparin 80 MG/0.8 ML SYR SUBCUT SCH ×2 (09:17→21:02)
[2023-01-21] MEDS: Albuterol/Ipratropium NEB.SOL (2.5/0.5 MG) 3 ML NEB.SOLN INH SCH (09:36)
[2023-01-21 09:53] LABS: C Reactive Protein 3.65 mg/L (<8.01)
[2023-01-21 09:59] LABS: Hematocrit 22.1 % (35-45); Hemoglobin 6.6 g/dL (11.5-14.3)
[2023-01-21] MEDS: Albuterol 2.5mg/3 ml (0.083%) NEB.SOLN INH SCH ×4 (10:14→22:58)
[2023-01-21] MEDS: cefTRIAXone 1 gm/50 mL D5W 1 GM/50 ML BAG IV SCH (10:47)
[2023-01-21] MEDS ORDERED: Saline NASAL SPRAY 0.65% BTL BOTH NARES PRN (16:36)
[2023-01-21] MEDS ORDERED: Iodixanol (CONTRAST) 320 MG/ML 100 ML SDV IV ONE (17:03)
[2023-01-21 21:02] LABS: Hematocrit 23.3 % (35-45); Hemoglobin 7.4 g/dL (11.5-14.3)
[2023-01-22] MEDS: Albuterol 2.5mg/3 ml (0.083%) NEB.SOLN INH SCH ×7 (03:33→22:59)
[2023-01-22 06:53] LABS: Calcium 8.4 mg/dL (8.6-10.3); Creatinine, Serum 0.45 mg/dL (0.51-0.95); Magnesium 1.6 mg/dL (1.9-2.7); Phosphorus 3.7 mg/dL (2.5-5.0); Potassium 3.7 mmol/L (3.5-5.0); eGFR CKD-EPI 105.4 (>60)
[2023-01-22 07:05] LABS: ABS Lymphocytes 1.5 10^3/uL (1.0-4.8); ABS Monocytes 0.8 10^3/uL (0.0-0.9); ABS Neutrophils 5.9 10^3/uL (1.5-7.6); ABS Nucleated RBC 0.03 10^3/ul; Eosinophil % 0.3 %; Hematocrit 22.5 % (35-45); Hemoglobin 7.1 g/dL (11.5-14.3); Lymphocyte % 17.8 %; Mean Corpuscular Hemoglobin 21.8 pg (27-33); Mean Corpuscular Hgb Conc 31.7 g/dL (31-36); Mean Platelet Volume 7.2 fL (7.5-11.2); Nucleated Red Blood Cells % 0.3 %/100WBC (0.0-0.8); Platelet Count 313 10^3/uL (150-450); Red Blood Count 3.26 10^6/uL (3.63-4.92); Red Cell Distribution Width 23.1 % (12-17); White Blood Count 8.3 10^3/uL (3.8-11.8)
[2023-01-22] MEDS ORDERED: Magnesium Sulfate 2 gm BAG 2 GM/50 ML BAG IVPB ONE (07:22)
[2023-01-22] MEDS: Mometasone/Formoter 200/5 MDI INH SCH ×2 (07:25→19:28)
[2023-01-22 09:27] LABS: Albumin 3.3 g/dL (3.2-5.2); Albumin/Globulin Ratio 1.4 (1-3); Direct Bilirubin 0.2 mg/dL (0.03-0.18); Globulin 2.3 g/dL (2-4); Indirect Bilirubin 0.6 mg/dL (0.3-1.0); Total Bilirubin 0.8 mg/dL (0.2-1.0); Total Protein 5.6 g/dL (6.4-8.9)
[2023-01-22] MEDS: cefTRIAXone 1 gm/50 mL D5W 1 GM/50 ML BAG IV SCH (09:56)
[2023-01-22] MEDS: Enoxaparin 80 MG/0.8 ML SYR SUBCUT SCH ×2 (10:09→21:57)
[2023-01-22] MEDS ORDERED: Iron Sucrose 200 MG in NS 0.9% 100 ml BAG 100 ML IVPB ONE (12:00)
[2023-01-22] MEDS: Iron Sucrose 200 MG in NS 0.9% 100 ml BAG 100 ML IVPB SCH (13:21)
[2023-01-23] MEDS: Albuterol 2.5mg/3 ml (0.083%) NEB.SOLN INH SCH ×7 (03:24→22:39)
[2023-01-23] MEDS: Albuterol/Ipratropium NEB.SOL (2.5/0.5 MG) 3 ML NEB.SOLN INH SCH ×2 (05:35→05:36)
[2023-01-23] MEDS: Mometasone/Formoter 200/5 MDI INH SCH ×3 (07:47→19:16)
[2023-01-23] MEDS ORDERED: Furosemide 40 mg/4 ml IV VIAL IV ONE (07:51)
[2023-01-23] MEDS: Enoxaparin 80 MG/0.8 ML SYR SUBCUT SCH ×3 (09:28→20:50)
[2023-01-23] MEDS: Iron Sucrose 200 MG in NS 0.9% 100 ml BAG 100 ML IVPB SCH (10:25)
[2023-01-23 10:37] LABS: Calcium 8.5 mg/dL (8.6-10.3); Creatinine, Serum 0.55 mg/dL (0.51-0.95); Magnesium 1.6 mg/dL (1.9-2.7); Phosphorus 3.6 mg/dL (2.5-5.0); Potassium 3.6 mmol/L (3.5-5.0); eGFR CKD-EPI 100.4 (>60)
[2023-01-23 10:43] LABS: ABS Basophils 0.1 10^3/uL (0.0-0.1); ABS Eosinophils 0.1 10^3/uL (0.0-0.5); ABS Lymphocytes 0.6 10^3/uL (1.0-4.8); ABS Monocytes 0.7 10^3/uL (0.0-0.9); ABS Neutrophils 4.3 10^3/uL (1.5-7.6); ABS Nucleated RBC 0.02 10^3/ul; Eosinophil % 1.5 %; Hematocrit 23.5 % (35-45); Hemoglobin 7.4 g/dL (11.5-14.3); Mean Corpuscular Hemoglobin 21.8 pg (27-33); Mean Corpuscular Hgb Conc 31.5 g/dL (31-36); Mean Corpuscular Volume 69.2 fL (80-97); Mean Platelet Volume 6.9 fL (7.5-11.2); Nucleated Red Blood Cells % 0.3 %/100WBC (0.0-0.8); Platelet Count 314 10^3/uL (150-450); Red Cell Distribution Width 23.9 % (12-17); White Blood Count 5.7 10^3/uL (3.8-11.8)
[2023-01-23] MEDS: Potassium Chlor 20 meq TAB.ER PO SCH ×2 (12:00→20:45)
[2023-01-23] MEDS ORDERED: Furosemide 40 mg/4 ml IV VIAL IV SLOW PU ONE (15:51)
[2023-01-23] MEDS ORDERED: Magnesium Sulfate 2 gm BAG 2 GM/50 ML BAG IVPB ONE (17:00)
[2023-01-24] MEDS: Albuterol 2.5mg/3 ml (0.083%) NEB.SOLN INH SCH ×3 (03:09→11:24)
[2023-01-24] MEDS ORDERED: Furosemide 40 mg/4 ml IV VIAL IV ONE (07:24)
[2023-01-24] MEDS: Mometasone/Formoter 200/5 MDI INH SCH (07:43)
[2023-01-24 08:49] LABS: Albumin 3.7 g/dL (3.2-5.2); Albumin/Globulin Ratio 1.4 (1-3); Calcium 8.9 mg/dL (8.6-10.3); Creatinine, Serum 0.51 mg/dL (0.51-0.95); Globulin 2.7 g/dL (2-4); Hematocrit 24.8 % (35-45); Hemoglobin 7.8 g/dL (11.5-14.3); Magnesium 1.7 mg/dL (1.9-2.7); Mean Corpuscular Hemoglobin 21.5 pg (27-33); Mean Corpuscular Hgb Conc 31.6 g/dL (31-36); Mean Corpuscular Volume 68.2 fL (80-97); Mean Platelet Volume 7.1 fL (7.5-11.2); Platelet Count 393 10^3/uL (150-450); Potassium 3.7 mmol/L (3.5-5.0); Red Blood Count 3.63 10^6/uL (3.63-4.92); Red Cell Distribution Width 24.4 % (12-17); Total Bilirubin 0.5 mg/dL (0.2-1.0); Total Protein 6.4 g/dL (6.4-8.9); White Blood Count 6.3 10^3/uL (3.8-11.8); eGFR CKD-EPI 102.2 (>60)
[2023-01-24 09:23] LABS: ABS Basophils 0.1 10^3/uL (0.0-0.1); ABS Eosinophils 0.1 10^3/uL (0.0-0.5); ABS Lymphocytes 1.3 10^3/uL (1.0-4.8); ABS Monocytes 0.6 10^3/uL (0.0-0.9); ABS Neutrophils 4.2 10^3/uL (1.5-7.6); ABS Nucleated RBC 0.01 10^3/ul; Anisocytosis 2+; Burr Cells 1+; Eosinophil % 1.7 %; Hypochromasia 1+; Lymphocyte % 21.4 %; Microcytosis 1+; Nucleated Red Blood Cells % 0.1 %/100WBC (0.0-0.8)
[2023-01-24] MEDS: Iron Sucrose 200 MG in NS 0.9% 100 ml BAG 100 ML IVPB SCH (09:45)
[2023-01-24] MEDS: Potassium Chlor 20 meq TAB.ER PO SCH (09:46)
[2023-01-24] MEDS ORDERED: Enoxaparin 80 MG/0.8 ML SYR SUBCUT SCH (10:00)
[2023-01-24 10:12] VITALS: BP 150/67
== END 2023-01-24 13:45 | disposition left against medical advice (07) | DRG 176 ==
LOC: ED 15:04 → SUATTDRO 21:42 → EDHOLD 21:42 → MED 01-20 07:47
PROVIDERS: ADMIT Internal Medicine; ATTEND Student in an Organized Health Care Education/Training Program